=== PATIENT | female | born 1975 | race Two or more races ===

== ENCOUNTER 2022-07-10 19:14 | Emergency (ER) | payer BC, OTHER ==
[~2022-07-10] VITALS: Ht 177.8 cm; Wt 45.4 kg
[2022-07-10] MEDS ORDERED: ONDANSETRON HCL/PF 4 MG/2 ML VIAL IVP ONE (19:30)
[2022-07-10] MEDS ORDERED: IV NS 0.9% 1,000 ML BAG IV ONE (19:30)
--- NOTE | 2022-07-10 19:30 | NUR ---
JOLYNN 89 FROM HOME C/O LOWER ABD PAIN & BACK PAIN. HX OVARIAN CYST. TOOK PERCOCET 10MG 4 HRS AGO. PATIENT PAIN SCALE 10/10. PREFERS TO BE IN SIDE LYING POSITION. NEEDS ASSISTANCE IN WALKING. - SOB, -CP, NOT IN CP DISTRESS. PLACED COMFORTABLY IN BED. ATTACHED TO MONITOR. VITALS CHECKED.
[2022-07-10] MEDS ORDERED: ONDANSETRON HCL/PF 4 MG/2 ML VIAL ONE (19:32)
--- NOTE | 2022-07-10 19:57 | NUR ---
URINE SPECIMEN SENT TO LAB
--- NOTE | 2022-07-10 19:57 | NUR ---
IV CANNULA G20 INSERTED ON LEFT AC. BLOOD DRAWN AND SENT TO LAB
--- NOTE | 2022-07-10 19:57 | NUR ---
DR MATHUR AT BEDSIDE
[2022-07-10] MEDS ORDERED: MORPHINE SULFATE INJ 4 MG/ML DISP.SYRIN ONE (20:12)
--- NOTE | 2022-07-10 20:18 | NUR ---
DOUBLE ORDER OF ZOFRAN FOR PATIENT. SPOKE TO DR MATHUR, HE SAID NOT TO GIVE THE 2ND ZOFRAN ORDERED.
[2022-07-10 20:19] LABS: BILIRUBIN,URINE NEGATIVE (NEGATIVE); COLOR,URINE YELLOW (YELLOW); LEUKOCYTE ESTERASE ,URINE NEGATIVE (NEGATIVE); NITRITE, URINE NEGATIVE (NEGATIVE); PROTEIN,URINE NEGATIVE (NEGATIVE); UGLUCOSE NEGATIVE (NEGATIVE); UROBILINOGEN,URINE 0.2 EU/dL (0.2)
--- NOTE | 2022-07-10 20:19 | NUR ---
NAVID OF ABDOMEN DONE AT BEDSIDE
[2022-07-10] MEDS ORDERED: MORPHINE SULFATE INJ 2 MG/ML DISP.SYRIN IV ONE (20:30)
[2022-07-10] MEDS ORDERED: ONDANSETRON HCL/PF 4 MG/2 ML VIAL IV ONE (20:30)
[2022-07-10 20:32] LABS: ALBUMIN 4.4 g/dL (3.4-5.0); BILIRUBIN,DIRECT 0.2 mg/dL (0.0-0.2); BILIRUBIN,TOTAL 0.9 mg/dL (0.2-1.0); CALCIUM, SERUM 9.3 mg/dL (8.5-10.1); CREATININE 0.8 mg/dL (0.6-1.3); TOTAL PROTEIN, SERUM 8.1 g/dL (6.4-8.2)
[2022-07-10 20:37] LABS: BASOPHILS % (AUTO) 0.8 % (0.0-2.0); EOSINOPHILS % (AUTO) 0.5 % (0.0-6.0); HEMATOCRIT 42 % (33-45); LYMPHOCYTES % (AUTO) 63.6 % (20.0-44.0); MEAN CORPUSCULAR HGB CONC 34 g/dl (31.0-36.0); MEAN CORPUSCULAR VOLUME 101 fL (82-100); MONOCYTES # (AUTO) 0.3 K/uL (0.1-1.30); MONOCYTES % (AUTO) 5.6 % (2.0-12.0); NEUTROPHILS # (AUTO) 1.4 K/uL (1.8-8.9); NEUTROPHILS % (AUTO) 29.5 % (43.0-81.0); PLATELET COUNT (AUTO) 246 K/uL (150-450); RED BLOOD CELL COUNT(AUTO) 4.13 MIL/uL (4.0-5.2); WHITE BLOOD COUNT (AUTO) 4.8 K/uL (4.3-11.0)
[2022-07-10 20:52] LABS: BACTERIA,URINE None seen /HPF (None Seen); SQUAMOUS EPITHELIAL CELL,UR 0-2 /HPF (None Seen); WBC,URINE 0-2 /HPF (0-3)
--- NOTE | 2022-07-10 21:47 | NUR ---
REASSESSMENT DONE. PATIENT PS IS 5/10. VITALS CHECKED AND RECORDED
[2022-07-10 22:04] LABS: EOSINOPHILS % (MANUAL) 1 % (0-4); LYMPHOCYTES % (MANUAL) 64 % (16-48); MONOCYTES % (MANUAL) 7 % (0-11.0); NEUTROPHILS % (MANUAL) 28 (42-76)
--- NOTE | 2022-07-10 22:28 | NUR ---
PATIENT WANT TO LEAVE WITHOUT WAITING FOR THE RESULTS AND THE PLAN. THEY WANT TO DO AMA. DR MATHUR MADE AWARE
--- NOTE | 2022-07-10 22:31 | NUR ---
IV CANNULA REMOVED
[2022-07-10 22:52] VITALS: BP 119/69
--- NOTE | 2022-07-10 22:52 | NUR ---
Patient does not wish to proceed with medical care recommended by ( ). Patient given information related to possible complications, up to and including , which could occur as a result of leaving the hospital at this time. Patient verbalizes understanding of risks involved due to leaving against medical advice. Patient has signed AMA form.
[2022-07-10] MEDS ORDERED: AMOX-430 PO (22:56)
[2022-07-10] MEDS ORDERED: IBUP-1955 PO (22:56)
== END 2022-07-10 22:53 | disposition left against medical advice (07) ==
LOC: ER 19:16
DX: R10.31 Right lower quadrant pain (principal); E87.6 Hypokalemia; D25.9 Leiomyoma of uterus, unspecified
CPT/HCPCS: 99284; 74176; 96374; 76856; 96361; 96375; 85025; 80048; 83690; 80076; 84703; 81001; 36415; 85007; J2270; J2405; J7030